=== PATIENT | male | born 1985 | race Caucasian/White ===

== ENCOUNTER 2024-07-10 09:33 | Emergency (ER) | payer OTHER, SELFPAY ==
[2024-07-10 09:44] VITALS: BP 156/99
--- NOTE | 2024-07-10 10:47 | ED.GENMED ---
History of Present Illness
<Ruth Holman PA-C - Last Filed: 07/10/24 15:32>
General
Chief Complaint: Flank Pain
Source: patient
Exam Limitations: none
Time Seen by Provider: 07/10/24 10:45
Nursing documentation reviewed up to this point in time: agreed with
History of Present Illness
History of Present Illness:
38-year-old male with no past medical history presents Emergency Department today with concerns of right sided flank pain that radiates into the right lower abdomen. Patient states that this started last night. Patient also reports that he has had
difficulty emptying his bladder and reports that the last time he was able to urinate was 4:00 pm last night. Patient states that he has never had a kidney stone in the past, has never had any issues with urinary retention. Patient denies dysuria,
fevers or chills. Patient denies any past history of intra abdominal surgeries. Patient states that he takes no medications daily and denies any allergies to any medications. Patient denies any penile discharge, chance of STDs, STIs. Patient has
never had pain like this before. Patient reports that it comes and goes. Patient states that it seems to get better when he is standing.
Review of Systems
<Ruth Holman PA-C - Last Filed: 07/10/24 15:32>
Review of Systems
All Other Systems: ROS reviewed and negative except as documented in HPI and ROS
Phy Exam
<Ruth Holman PA-C - Last Filed: 07/10/24 15:32>
Physical Exam
Physical Exam:
General: Patient is well appearing and in no acute distress; non-toxic
Skin: Warm and dry, no rashes or lesions
Head: Normocephalic, atraumatic
Eyes: Sclera non-icteric. EOMs intact.
Cardiac: Regular rate and rhythm, no murmurs.
Pulm: Normal respiratory effort
Abdomen: Right sided abdominal tenderness to palpation with no guarding, no cva tenderness.
Neuro: CN II-XII intact, no focal neurologic deficits.
Psychiatric: Appropriate mood and affect.
Course
<Ruth Holman PA-C - Last Filed: 07/10/24 15:32>
Orders/Labs/Results
Orders:
Orders
07/10/24 10:51
Bladder Scan- Treatment ONCE
Ketorolac [Toradol] 15 mg IV NOW STA
07/10/24 11:28
CMP [Comprehensive Metabolic Panel] Urgent
Complete Blood Count/With Diff Urgent
Urinalysis Reflex To Culture Urgent
Date Specimen was Collected: 07/10/24
Time Specimen was Collected: 09:36
Comment: ordered in triage
07/10/24 12:04
0.9% Sodium Chloride 1000 ml [Nss] 1,000 ml IV BOLUS
07/10/24 12:34
CT Abd/pel Without Iv Or Oral Urgent
Comment:
Reason For Exam: right flank pain
Abnormal Lab Results
07/10/24
11:28
WBC 13.5 H 10^3/uL
(4.8-10.8)
Abs Immat Gran (auto) 0.1 H 10^3/uL
(0-0.05)
Absolute Neuts (auto) 10.2 H 10^3/uL
(1.4-6.5)
Absolute Monos (auto) 1.4 H 10^3/uL
(0.1-0.6)
Immature Gran % 0.8 H %
(0-0.5)
Neutrophils % 75.9 H %
(42.2-75.2)
Lymphocytes % 11.7 L %
(20.5-51.1)
Monocytes % 10.4 H %
(1.7-9.3)
BUN 22 H mg/dl
(9-20)
Creatinine 1.4 H mg/dL
(0.7-1.3)
Glucose 107 H mg/dl
(70-99)
07/10/24 11:28
07/10/24 11:28
Vital Signs
Initial and Last Documented VS:
Initial Vital Signs
Temp Pulse Resp BP Pulse Ox
97.8 F 92 18 156/99 98
07/10/24 09:44 07/10/24 09:44 07/10/24 09:44 07/10/24 09:44 07/10/24 09:44
Last Documented Vital Signs
Temp Pulse Resp BP Pulse Ox
97.8 F 85 18 156/99 100
07/10/24 09:44 07/10/24 14:44 07/10/24 14:44 07/10/24 09:44 07/10/24 14:44
<Taty Nowak, DO - Last Filed: 07/10/24 14:11>
Orders/Labs/Results
Orders:
Orders
07/10/24 10:51
Bladder Scan- Treatment ONCE
Ketorolac [Toradol] 15 mg IV NOW STA
07/10/24 11:28
CMP [Comprehensive Metabolic Panel] Urgent
Complete Blood Count/With Diff Urgent
Urinalysis Reflex To Culture Urgent
Date Specimen was Collected: 07/10/24
Time Specimen was Collected: 09:36
Comment: ordered in triage
07/10/24 12:04
0.9% Sodium Chloride 1000 ml [Nss] 1,000 ml IV BOLUS
07/10/24 12:34
CT Abd/pel Without Iv Or Oral Urgent
Comment:
Reason For Exam: right flank pain
Abnormal Lab Results
07/10/24
11:28
WBC 13.5 H 10^3/uL
(4.8-10.8)
Abs Immat Gran (auto) 0.1 H 10^3/uL
(0-0.05)
Absolute Neuts (auto) 10.2 H 10^3/uL
(1.4-6.5)
Absolute Monos (auto) 1.4 H 10^3/uL
(0.1-0.6)
Immature Gran % 0.8 H %
(0-0.5)
Neutrophils % 75.9 H %
(42.2-75.2)
Lymphocytes % 11.7 L %
(20.5-51.1)
Monocytes % 10.4 H %
(1.7-9.3)
BUN 22 H mg/dl
(9-20)
Creatinine 1.4 H mg/dL
(0.7-1.3)
Glucose 107 H mg/dl
(70-99)
07/10/24 11:28
07/10/24 11:28
Vital Signs
Initial and Last Documented VS:
Initial Vital Signs
Temp Pulse Resp BP Pulse Ox
97.8 F 92 18 156/99 98
07/10/24 09:44 07/10/24 09:44 07/10/24 09:44 07/10/24 09:44 07/10/24 09:44
Last Documented Vital Signs
Temp Pulse Resp BP Pulse Ox
97.8 F 85 18 156/99 100
07/10/24 09:44 07/10/24 14:44 07/10/24 14:44 07/10/24 09:44 07/10/24 14:44
Elizabethlt;Ruth Holman PA-C - Last Filed: 07/10/24 15:32>
MDM/Problems Addressed
Differential Diagnosis Includes:
ddx include nephrolithiasis, acute cystitis, urethral stricture,prostatic hypertrophy
MDM/Problems Addressed:
38-year-old male with no past medical history presents emergency department today with right-sided flank pain that radiates into the right side of the abdomen. Patient also reports feelings of urinary retention and states that the last time he was
able to void was yesterday at 4 PM. Patient reports that he made an appointment to see a urologist because he thought he was experiencing a kidney stone however patient is never been seen by urologist in the past has no history of urologic issues.
On exam, he is well-appearing, afebrile, I was updated by nursing that he is eventually able to void and felt as though his pain resolved after this. He is also given Toradol which states helped with his pain. CBC revealed mild leukocytosis and
his CMP revealed slightly increased BUN and creatinine, he was subsequently given IV fluids. His CAT scan reveals a 5 mm stone at the right UVJ. Did show perinephric edema and will start on Keflex. Patient stable for trial of outpatient stone
passage at this time point. Patient was written for a prescription for Flomax by his urologist. No evidence of retention on bladder scan patient will follow-up with them. Patient stable for discharge, return precautions given.
Chronic conditions affecting care:
n/a
Acute Exacerbation and/or Progression of Chronic Illness:
n/a
<Ruth Holman PA-C - Last Filed: 07/10/24 15:32>
*Pulse Oximetry
Patient hypoxic: no
*Critical Care Note
Total Time (30-74mins, 75-104mins- exclusive of procedures): Not Applicable
Data Reviewed
Review of Other/Old Records Reveals: Records (no previous ER physician documentation to review ) and Discharge Summary (Discharge summary in [facility] to review )
Source: patient and records
Prescriptions/Medications Considered But Not Given:
n/a
Further Testing Considered But Not Given:
n/a
<Ruth Holman PA-C - Last Filed: 07/10/24 15:32>
Patient Management
Escalation/DeEscalation of care consider admission/obs:
Admit not indicated, patient stable for discharge.
ED Attending Note
<Ruth Holman PA-C - Last Filed: 07/10/24 15:32>
-
Portions of this chart may have been created with voice recognition software.� Occasional wrong word or��sound alike� substitutions may have occurred due to the inherent limitations of voice recognition software.
<Taty Nowak DO - Last Filed: 07/10/24 14:11>
ED Attending Note
Patient seen and examined by attending physician: Yes
I performed the substantive portion of visit, reviewed & personally made and approve the management plan that is documented in note by myself or DAWNA.: Yes
I performed a history and physical exam of patient and discussed management with resident, I reviewed resident's note and agree with documented findings and plan of care.: Yes
ED Attending Note:
38-year-old male without significant past medical history presenting to the emergency department for acute onset of right flank pain. Patient reports symptoms started around last evening morning with radiation to his abdomen and groin. Reports
associated nausea. Denies any trauma or fall. Denies any chest pain or difficulty breathing. Denies any history of renal stones. Denies fever. Has had difficulty voiding, last voiding episode was yesterday. Vital signs on arrival are normal.
On exam, patient is in no acute distress, however is uncomfortable secondary to pain. Patient with right-sided CVA tenderness tenderness to the right lower quadrant of the abdomen. Patient reporting that he feels like he cannot urinate, will
BladderScan. Suspected kidney stone. Likely at the UVJ, triggering urinary symptoms. Lower suspicion for infected stone. Will obtain laboratory analysis, urinalysis, CT imaging. Toradol and Zofran administered for symptoms.
14:00 -Labs show mild leukocytosis, however urine without any evidence of infection. CT shows 5 mm stone with hydronephrosis, as well as some perinephric edema. At this time do not suspect infected stone, however in the setting of edema will
administer antibiotic. Feel stable for discharge with outpatient urology follow-up. Patient already has follow-up scheduled, saw the urologist yesterday. Patient already has prescription for Flomax. Return precautions discussed.
Discharge Plan
Departure
Patient Disposition: Home (Routine Discharge)
Date of Disposition: 07/10/24
Time of Disposition: 14:12
Patient with high blood pressure during this ER visit?: Yes
Condition: Good
Discharge Problem:
Kidney stone on right side
Instructions: Kidney Stones (DC), How to Strain Your Urine, BLOOD PRESSURE
Prescriptions:
New
cephalexin 500 mg capsule
500 mg PO BID 5 Days Qty: 10 0RF
oxycodone 5 mg tablet
5 mg PO Q8H PRN (Reason: Pain) Qty: 5 0RF
Referrals:
Jrezy Bruner, DO [Family Provider] -
Activity Restrictions/Additional Instructions:
Please follow-up with urology. Please knot picker cloth your prescription for the Flomax. You can take 1 tablet once daily until stone passage.
Keflex, an antibiotic, has been sent to your pharmacy. Please start this prophylactically. Please take 1 tablet twice daily for 5 days.
I recommend straining your urine to look for stone passage.
Please return to the emergency department should you develop increasing pain, should your symptoms not resolve over the next few days, should you develop fevers or chills, abdominal pain, nausea or vomiting, or any other signs or symptoms concerning
to you.
Interventions
Interventions:
*Risk Screen - Suicide Last Done: 07/10/24 09:44
*General Assessment Last Done: 07/10/24 09:44
*Neglect/Abuse Screening Last Done: 07/10/24 09:44
*Nursing Disposition Last Done: 07/10/24 14:44
KR-Kdfald-Jgzntggpjy Assessment Last Done: 07/10/24 14:44
ED-Male Genitourinary Assessment Last Done: 07/10/24 14:44
Discharge Date and Time
Discharge Date/Time: 07/10/24 14:45
Print Language: CROATIAN
[2024-07-10] MEDS: TORADOL 15 MG IV (11:25)
[2024-07-10 11:41] LABS: Urine Albumin Negative (Neg - Trace); Urine Bilirubin Negative (Negative); Urine Character Clear (Clear); Urine Color Yellow; Urine Glucose Negative (Negative); Urine Ketone Negative (Negative); Urine Leukocyte Negative (Negative); Urine Nitrite Negative (Negative); Urine Occult Blood Negative (Negative); Urine Urobilinogen Negative (Neg - 1+)
[2024-07-10 11:44] LABS: % Basophils 0.4 % (0-2); % Eosinophils 0.8 % (0-6); % Immature Granulocytes 0.8 % (0-0.5); % Lymphocytes 11.7 % (20.5-51.1); % Monocytes 10.4 % (1.7-9.3); % Neutrophils 75.9 % (42.2-75.2); Absolute Basophils 0.1 10^3/uL (0-0.2); Absolute Eosinophils 0.1 10^3/uL (0-0.7); Absolute Immature Granulocytes 0.1 10^3/uL (0-0.05); Absolute Lymphocytes 1.6 10^3/uL (1.2-3.4); Absolute Monocytes 1.4 10^3/uL (0.1-0.6); Absolute Neutrophils 10.2 10^3/uL (1.4-6.5); Hematocrit 41.6 % (39.0-52.0); Hemoglobin 14.7 g/dL (13.0-18.0); Mean Corp Hgb Conc. 35.3 g/dL (33.0-37.0); Mean Corpuscular Hgb 28.9 pg (27.0-31.0); Mean Corpuscular Volume 81.9 fL (80.0-94.0); Mean Platelet Volume 9.5 fL (7.4-10.4); Nucleated Red Blood Cells % 0 % (-); Platelet Count 283 10^3/uL (130-400); Red Blood Cell Count 5.08 10^6/uL (4.70-6.10); Red Cell Dist. Width 12.9 % (11.5-14.5); White Blood Cell Count 13.5 10^3/uL (4.8-10.8)
[2024-07-10 11:58] LABS: ALT (SGPT) 25 U/L (0-50); AST (SGOT) 27 U/L (17-59); Albumin 4.6 g/dl (3.5-5.0); Alkaline Phosphatase 54 U/L (38-126); Blood Urea Nitrogen 22 mg/dl (9-20); Calcium 9.9 mg/dl (8.4-10.2); Carbon Dioxide 27 mmol/L (22-30); Chloride 99 mmol/L (98-107); Glucose 107 mg/dl (70-99); Potassium 4.5 mmol/L (3.5-5.1); Sodium 139 mmol/L (135-145); Total Bilirubin 1.3 mg/dl (0.2-1.3); Total Protein 7.2 g/dl (6.3-8.2); eGFR > 60.00
[2024-07-10] MEDS: NSS 1000 IV (13:36)
== END 2024-07-10 14:45 | disposition home or self-care (01) ==
LOC: EMR 09:33
PROVIDERS: EMERGENCY PHYSICIAN Student in an Organized Health Care Education/Training Program; FAMILY PHYSICIAN Student in an Organized Health Care Education/Training Program
DX: N13.2 Hydronephrosis with renal and ureteral calculous obstruction (principal)
CPT/HCPCS: 99284; 96374; 96361; 51798; 74176; 80053; 81003; 85025

== ENCOUNTER 2024-08-18 06:44 | Day surgery (SDC) | payer OTHER, SELFPAY ==
[2024-08-18] VITALS (10 sets, daily range): BP systolic 125–154; BP diastolic 70–99; BMI 30.9
[2024-08-18] MEDS: Pyridium 200 MG PO (15:25)
[2024-08-18] MEDS: DETROL LA 2 MG PO (15:25)
[2024-08-22 13:09] LABS: Stone Analysis Mass 132 mg
== END 2024-08-18 16:26 | disposition home or self-care (01) ==
LOC: SDS 06:44
PROVIDERS: ATTENDING PHYSICIAN Surgery
DX: N13.2 Hydronephrosis with renal and ureteral calculous obstruction (principal); N20.0 Calculus of kidney
CPT/HCPCS: 52356; 74018; 76000; 82365; C1769; C2617